=== PATIENT | male | born 2000 | race Caucasian/White ===

== ENCOUNTER 2019-07-26 09:37 | Emergency (ER) | payer OTHER ==
[~2019-07-26] VITALS: Ht 180.3 cm; Wt 96.8 kg
[2019-07-26] MEDS ORDERED: ACET-683 PO (09:44)
[2019-07-26] MEDS ORDERED: NON-325T5 PO (09:44)
[2019-07-26] MEDS ORDERED: ISOVUE-370 76% 100ML VIAL (Q9967) As Ordered ONE (10:35)
[2019-07-26 10:36] LABS: BASO % 0.3 % (0.0-1.0); EOS # 0.2 10^3/uL (0.0-0.5); EOS % 1.9 % (0.0-3.0); HEMOGLOBIN 15.4 g/dl (13.5-17.5); LYMPH # 1.2 10^3/uL (1.5-5.0); LYMPH % 15.5 % (24.0-44.0); MEAN CORPUSCULAR HEMOGLOBIN 29.7 pg (27.0-33.0); MEAN CORPUSCULAR HGB CONC 32.1 g/dl (32.0-36.5); MEAN CORPUSCULAR VOLUME 92.7 fl (80.0-96.0); MONO # 0.7 10^3/uL (0.0-0.8); MONO % 8.4 % (0.0-5.0); NEUTROPHILS # 5.7 10^3/uL (1.5-8.5); NEUTROPHILS % 73.6 % (36.0-66.0); PLATELET COUNT, AUTOMATED 236 10^3/uL (150-450); RED BLOOD COUNT 5.18 10^6/uL (4.30-6.10); WHITE BLOOD COUNT 7.8 10^3/uL (4.0-10.0)
[2019-07-26 11:10] LABS: ERYTHROCYTE SEDIMENTATION RATE 5 mm/hr (0-15)
--- NOTE | 2019-07-26 11:19 | REP ---
Soft-tissue neck CT study with IV contrast: History: Peritonsillar abscess. CT contrast dose: 75 mL of intravenous Isovue 370. CT findings: The left tonsillar soft tissues are enlarged. There is a ill-defined small area of low density 6 mm in diameter and the left tonsillar soft tissues. This does not have a well-defined enhancing margin and may reflect inflammatory change versus developing abscess. There is adjacent cervical lymphadenopathy most prominent in the left anterior cervical lymph nodes. These do not appear necrotic. The largest lymph node on the left measures 15 mm in short axis dimension x 21 x 29 mm. Peritonsillar soft tissues are unremarkable. Right tonsillar soft tissues are unremarkable. Submandibular and parotid glands are intact and symmetric. Thyroid lobes are normal in appearance. The lung apices are clear. No vascular lesion is seen. No bony destructive lesion is appreciated. Visualized paranasal sinuses are clear. The visualized intracranial structures are unremarkable. Impression: Enlarged left tonsillar soft tissues with ill-defined 6 mm area of low density inflammatory change. This does not appear to be a walled off abscess. There is reactive lymphadenopathy particularly on the left anteriorly. Electronically Signed by Smith Spicer MD 07/26/2019 04:49 P
[2019-07-26] MEDS ORDERED: methylPREDNISolone INJ 125 MG/2 ML VIAL (J2930) IV ONE (11:30)
[2019-07-26] MEDS ORDERED: CLEO300C2 PO (11:58)
[2019-07-26] MEDS ORDERED: PRED20TA PO (11:58)
[2019-07-26 12:05] VITALS: BP 131/72
== END 2019-07-26 12:06 | disposition home or self-care (01) ==
LOC: M ED 09:37
DX: J03.90 Acute tonsillitis, unspecified (principal); Z79.51 Long term (current) use of inhaled steroids; Z79.899 Other long term (current) drug therapy; Z87.891 Personal history of nicotine dependence
CPT/HCPCS: 70491; 80047; 83605; 85025; 85652; 86140; 87040; 96374; 99283; J2930; Q9967

== ENCOUNTER → 2020-02-21 | Outpatient (CLI) | payer OTHER ==
[~2020-02-21] MED LIST: ACET-683 PO; CLEO300C2 PO; NON-325T5 PO; PRED20TA PO
--- NOTE | 2020-02-26 14:30 | REP ---
SCROTAL ULTRASOUND HISTORY: Varicocele. TECHNIQUE: Real-time sonographic evaluation of the scrotum and contents is performed. FINDINGS: The testicles are normal in size and echotexture, right testicle measuring 5.3 x 2.0 x 3.6 cm and the left testicle 4.2 x 2.1 x 3.3 cm. Left testicle is smaller than the right. Few small cysts are seen in the head of the right epididymis, the largest measures 5 mm. There is a benign extratesticular calcification in the left hemiscrotum measuring 3 mm in diameter. There are dilated venous structures on the left measuring 5 mm, which increase to 6 mm diameter with Valsalva maneuver. There are small bilateral hydroceles. IMPRESSION: No testicular mass or torsion. Left testicle smaller than the right. Mild left varicocele. Few tiny cysts in the head of the right epididymis. Benign 3-mm calcification in the left hemiscrotum. MTDD
== END ==
LOC: M RAD 14:04
PROVIDERS: ATTEND Nurse Practitioner Women's Health
DX: N50.89 Other specified disorders of the male genital organs (principal)

== ENCOUNTER 2020-07-24 11:36 | Observation (INO) | payer OTHER ==
[~2020-07-24] VITALS: Ht 180.3 cm; Wt 94.8 kg
[~2020-07-24 11:36] MED LIST changes: +ACET-838 PO; -NON-325T5 PO
[2020-07-24] MEDS ORDERED: NS 2,810 ML in IV 1 EA IV ONE (12:15)
[2020-07-24 12:21] LABS: BASO % 0.2 % (0.0-1.0); HEMOGLOBIN 15.9 g/dl (13.5-17.5); LYMPH # 0.6 10^3/uL (1.5-5.0); LYMPH % 4.2 % (24.0-44.0); MEAN CORPUSCULAR HEMOGLOBIN 29.5 pg (27.0-33.0); MEAN CORPUSCULAR HGB CONC 33.1 g/dl (32.0-36.5); MEAN CORPUSCULAR VOLUME 89.1 fl (80.0-96.0); MONO # 1.2 10^3/uL (0.0-0.8); MONO % 8.9 % (2.0-8.0); NEUTROPHILS % 86.3 % (36.0-66.0); PLATELET COUNT, AUTOMATED 254 10^3/uL (150-450); RED BLOOD COUNT 5.39 10^6/uL (4.30-6.10); WHITE BLOOD COUNT 13.9 10^3/uL (4.0-10.0)
[2020-07-24] MEDS ORDERED: LORazepam 2 MG/ML VIAL IV STA (12:23)
[2020-07-24] MEDS ORDERED: MAG SULF 1GM/100ML (MAG RUN) 1 GM in IV 1 EA IV ONE ×2 (12:25→14:15)
--- NOTE | 2020-07-24 12:25 | REP ---
INDICATION: Drug Overdose COMPARISON: None. TECHNIQUE: Portable AP view of the chest FINDINGS: The mediastinum and cardiac silhouette are within normal limits for portable technique. The lung cardozo are clear without acute consolidation, effusion, or pneumothorax. Skeletal structures are intact. IMPRESSION: No acute cardiopulmonary process appreciated. <Electronically signed by Conor Mcgee > 07/24/20 [id number]
[2020-07-24 12:36] LABS: OSMOLALITY SERUM 295 MOSM/KG (275-295)
[2020-07-24 12:49] LABS: AMPHETAMINES LEVEL URINE NEGATIVE (NEGATIVE); BARBITURATES URINE NEGATIVE (NEGATIVE); BENZODIAZEPINES URINE NEGATIVE (NEGATIVE); CANNABINOIDS URINE NEGATIVE (NEGATIVE); COCAINE METABOLITE URINE NEGATIVE (NEGATIVE); METHADONE URINE NEGATIVE (NEGATIVE); OPIATES URINE NEGATIVE (NEGATIVE); PHENCYCLIDINE URINE NEGATIVE (NEGATIVE)
[2020-07-24 13:01] LABS: ACETAMINOPHEN LEVEL < 2.0 UG/ML (10.0-30.0); ALBUMIN 5.2 GM/DL (3.2-5.2); ALT/SGPT 36 U/L (12-78); BILIRUBIN,DIRECT 0.2 MG/DL (0.0-0.2); BILIRUBIN,TOTAL 0.5 MG/DL (0.2-1.0); BLOOD UREA NITROGEN 16 MG/DL (7-18); CALCIUM LEVEL 10.2 MG/DL (8.5-10.1); CARBON DIOXIDE LEVEL 24 MEQ/L (21-32); CHLORIDE LEVEL 107 MEQ/L (98-107); CPK CREATINE PHOSPHOKINASE 9382 U/L (39-308); ETHYL ALCOHOL (ETHANOL) < 0.003 % (0.000-0.010); GLOMERULAR FILTRATION RATE 47.9 (>60); GLUCOSE, FASTING 105 MG/DL (70-100); POTASSIUM SERUM 3.7 MEQ/L (3.5-5.1); SALICYLATE LEVEL < 1.7 MG/DL (5.0-30.0); SODIUM LEVEL 142 MEQ/L (136-145); TOTAL PROTEIN 8.2 GM/DL (6.4-8.2)
[2020-07-24] MEDS ORDERED: HEPARIN SOD (PORCINE) 5000UNITS/ML 1ML VIAL/SYRINGE SC SCH (15:00)
--- NOTE | 2020-07-24 16:18 | HPEPDOC ---
[facility] Medical History & Physical Date of Admission Jul 24, 2020 Date of Service: Jul 24, 2020 Attending Physician: Nicole Salazar MD History and Physical CHIEF COMPLAINT: Altered mental status HISTORY OF PRESENT ILLNESS: Patient is a 20-year-old male with no significant past medical history who presented to [facility] emergency room by EMS after being found altered on . According to ER provider, the patient was seen wandering outside of his room half dressed. He was confused, had garbled speech and thought he was in [place]. It was later found out that the patient took approximately 2500 mg of Benadryl with alcohol and attempt to kill himself after his girlfriend broke up with him. The patient has no documented history of depression or suicidal attempts. He does not follow with [facility] on . The patient was brought to the emergency room for further evaluation. In the ER, vital signs show temperature 95.996.5 Fahrenheit, heart rate [id number] with all other vital signs stable. WBC 13.9, creatinine 1.90 (baseline is within normal limits), CK 9382, QTC 570 on initial ECG. Repeat ECG showed QTC 450 and improved. Chest x-ray showed no acute cardiopulmonary process. The patient had no injury on his body. Over some time the patient's and patient improved and he again admitted to want to kill himself after the news of his girlfriend breaking up with him. He states he has felt sad even from before that but has never thought about killing himself. He states those thoughts are still with him. He denies auditory or visual hallucinations, hopelessness, tearfulness, loss of appetite, poor sleep, poor concentration outside of this event. He does admit to feeling paranoid at times, more than normal. Poison control was called from the emergency room. Patient was aggressively hydrated; however, tachycardia persisted. The patient denied chest pain, shortness of breath, nausea, vomiting, fevers, chills and does not recall any type of tremoring, there was no witnessed seizure-like activity. The patient was admitted for diphenhydramine overdose, acute kidney failure, acute rhabdomyolysis, suicide attempt. REVIEW OF SYSTEMS: Negative except for what is mentioned above PAST MEDICAL HISTORY: None PAST SURGICAL HISTORY: [place] teeth removal FAMILY HISTORY: Father: Unknown medical history as he is not actively in his life Mother: Diabetes, asthma. Alive SOCIAL HISTORY: The patient sleeps several times per week. He denies drug use. He drinks alcohol 23 times per week. He lives on [address] in the [facility]. He is a full code. ALLERGIES: Please see below. HOME MEDICATIONS: Please see below. PHYSICAL EXAMINATION: VS: Please see below CONSTITUTIONAL: No acute distress, resting comfortably, AAO x 3 EYES: PERRLA but dilated to 8 mm, EOM intact, + horizontal nystagmus HENT, MOUTH: Normocephalic, atraumatic, moist mucous membranes, NECK: SUPPLE, no JVD, no lymphadenopathy, no carotid bruit CV: Regular rate and rhythm, S1S2 normal, no murmurs/rubs/gallops RESPIRATORY: Clear to auscultation bilaterally, no rales/rhonchi/wheezes GI: BS positive in 4 quadrants, soft, nontender, nondistended, no rebound or guarding, no organomegaly : Deferred MUSCULOSKELETAL: Normal ROM. No cyanosis, clubbing, swelling, joint deformity, extremity edema INTEGUMENTARY: Intact, no rashes, no lesions, no erythema NEUROLOGIC: Cranial Nerves II-XII are intact, no focal deficits PSYCHIATRIC: Flat affect LABORATORY DATA: Please see below IMAGING: CXR: No acute cardiopulmonary issues ASSESSMENT: 20-year-old male with no significant past medical history admitted for suicide attempt 2/2 to alcohol with diphenhydramine overdose, acute kidney failure, acute rhabdomyolysis, suicide attempt. PLAN: Acute encephalopathy likely toxic and 2/2 to diphenhydramine overdose with alcohol -Improving slowly with IVFs -UDS neg -ETOH neg -Poison control contacted -C/w aggressive IVF hydration Acute kidney failure likely multifactorial 2/2 to dehydration, acute rhabdomyolysis -Cr 1.9, baseline is wnl -C/w aggressive fluid hydration, avoid nephrotoxic meds, tx for acute rhabdomyolysis below Acute rhabdomyolysis likely 2/2 to being down for unknown period of time, cannot r/o seizure during this time -Cr 1.9, CK 9382 -C/w fluid hydration, encouraging fluids during the day, daily labs including CK Tachycardia likely 2/2 to dehydration, anxiety, overdose above -C/w IVFs -Monitor on tele -Not suspecting infection Suicide attempt with likely underlying undiagnosed depression -States he has felt "sad" for some time now -No prior suicide attempts, hospital or psych hospital admissions -1:1 sitter, when more medically stable will involve psychiatry to evaluate. Prolonged QTc -Improved since initial ECG -Monitor on tele DVT px -Heparin SC DISPOSITION: Plan is to consult psychiatry when medical issues have improved. W ill likely need inpatient services in [facility]. Vital Signs Vital Signs Date Time Temp Pulse Resp B/P (MAP) Pulse Ox O2 Delivery O2 Flow Rate FiO2 07/24/20 14:56 95.9 07/24/20 14:53 119 22 98 Room Air 07/24/20 14:45 143/63 (89) Laboratory Data Labs 24H Laboratory Tests 2 07/24/20 12:01: Immature Granulocyte % (Auto) 0.4, Neutrophils (%) (Auto) 86.3H, Lymphocytes (%) (Auto) 4.2L, Monocytes (%) (Auto) 8.9H, Eosinophils (%) (Auto) 0.0, Basophils (%) (Auto) 0.2, Neutrophils # (Auto) 12.0H, Lymphocytes # (Auto) 0.6L, Monocytes # (Auto) 1.2H, Eosinophils # (Auto) 0.0, Basophils # (Auto) 0.0, Nucleated Red Blood Cells % (auto) 0.0, Anion Gap 11, Glomerular Filtration Rate 47.9L, Osmolality 295, Calcium Level 10.2H, Total Bilirubin 0.5, Direct Bilirubin 0.2, Aspartate Amino Transf (AST/SGOT) 132H, Alanine Aminotransferase (ALT/SGPT) 36, Alkaline Phosphatase 87, Total Creatine Kinase 9382H, Total Protein 8.2, Albumin 5.2, Albumin/Globulin Ratio 1.7, Thyroid Stimulating Hormone (TSH) 1.450, Salicylates Level < 1.7L, Acetaminophen Level < 2.0L, Ethyl Alcohol Level < 0.003 07/24/20 12:15: Urine Opiates Screen NEGATIVE, Urine Methadone Screen NEGATIVE, Urine Barbiturates Screen NEGATIVE, Urine Phencyclidine Screen NEGATIVE, Urine Amphetamines Screen NEGATIVE, Urine Benzodiazepines Screen NEGATIVE, Urine Cocaine Metabolite Screen NEGATIVE, Urine Cannabinoids Screen NEGATIVE 07/24/20 15:50: CBC/BMP Laboratory Tests 07/24/20 12:01 Home Medications Unable to Obtain Active Prescriptions or Reported Meds Allergies Coded Allergies: No Known Drug Allergies (Verified Allergy, Unknown, 07/26/19) A-FIB/CHADSVASC A-FIB History Current/History of A-Fib/PAF?: No Current PO Anticoag Therapy: No Age/Risk Factor Scoring CHADSVASC: CHADSVASC Response (Comments) Value Age Risk Factor Age < 65 years old 0 Gender Risk Factor Male 0 Hx of CHF No 0 Hx of HTN No 0 Hx of Stroke/TIA/or VTE No 0 Hx of Diabetes No 0 Hx of Vascular Disease No 0 Total 0 Treatment Treatment ordered: Other Other anticoagulant ordered: heparin Nicole Salazar MD Jul 24, 2020 16:18
[2020-07-24] MEDS: NS 1,000 ML IV SCH ×2 (16:35→23:56)
[2020-07-24 16:40] LABS: RSV AMPLIFICATION NEGATIVE (NEGATIVE)
[2020-07-24 18:15] VITALS: BP 134/78
[2020-07-24 19:25] VITALS: BP 126/75
[2020-07-24] MEDS: HEPARIN SOD (PORCINE) 5000UNITS/ML 1ML VIAL/SYRINGE SC SCH (21:37)
[2020-07-24 23:25] LABS: ALBUMIN 3.7 GM/DL (3.2-5.2); ALT/SGPT 51 U/L (12-78); BILIRUBIN,TOTAL 0.7 MG/DL (0.2-1.0); BLOOD UREA NITROGEN 12 MG/DL (7-18); CALCIUM LEVEL 8.1 MG/DL (8.5-10.1); CARBON DIOXIDE LEVEL 27 MEQ/L (21-32); CHLORIDE LEVEL 111 MEQ/L (98-107); CPK CREATINE PHOSPHOKINASE 41552 U/L (39-308); CREATININE FOR GFR 0.97 MG/DL (0.70-1.30); GLOMERULAR FILTRATION RATE > 60.0 (>60); GLUCOSE, FASTING 99 MG/DL (70-100); MAGNESIUM LEVEL 2.2 MG/DL (1.8-2.4); POTASSIUM SERUM 3.7 MEQ/L (3.5-5.1); SODIUM LEVEL 142 MEQ/L (136-145); TOTAL PROTEIN 6.1 GM/DL (6.4-8.2)
--- NOTE | 2020-07-25 03:20 | ECGEPIP ---
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
--- NOTE | 2020-07-25 03:25 | ECGEPIP ---
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
[2020-07-25] MEDS: NS 1,000 ML IV SCH ×4 (04:53→23:31)
[2020-07-25] MEDS: HEPARIN SOD (PORCINE) 5000UNITS/ML 1ML VIAL/SYRINGE SC SCH ×3 (05:03→21:16)
[2020-07-25 05:57] LABS: HEMATOCRIT 41.5 % (42.0-52.0); MEAN CORPUSCULAR HGB CONC 32.3 g/dl (32.0-36.5); PLATELET COUNT, AUTOMATED 187 10^3/uL (150-450); RED BLOOD COUNT 4.46 10^6/uL (4.30-6.10); WHITE BLOOD COUNT 6.2 10^3/uL (4.0-10.0)
[2020-07-25 06:00] VITALS: BP 125/76
[2020-07-25 06:02] LABS: HEMOGLOBIN 13.4 g/dl (13.5-17.5)
[2020-07-25 07:13] LABS: ALBUMIN 3.6 GM/DL (3.2-5.2); ALT/SGPT 57 U/L (12-78); BILIRUBIN,TOTAL 0.8 MG/DL (0.2-1.0); BLOOD UREA NITROGEN 10 MG/DL (7-18); CALCIUM LEVEL 7.8 MG/DL (8.5-10.1); CARBON DIOXIDE LEVEL 26 MEQ/L (21-32); CHLORIDE LEVEL 111 MEQ/L (98-107); CPK CREATINE PHOSPHOKINASE 36064 U/L (39-308); CREATININE FOR GFR 0.88 MG/DL (0.70-1.30); GLOMERULAR FILTRATION RATE > 60.0 (>60); GLUCOSE, FASTING 88 MG/DL (70-100); SODIUM LEVEL 142 MEQ/L (136-145)
[2020-07-25 14:00] VITALS: BP 131/65
--- NOTE | 2020-07-25 17:17 | IPNPDOC ---
Date Seen The patient was seen on 07/25/20. Progress Note SUBJECTIVE: Complains of sore throat, gf had recent infection unknown cause. Throat culture ordered. CK elevated, c/w hydration. Denies chest pain but is overall weak. OBJECTIVE: PHYSICAL EXAMINATION: VS: Please see below CONSTITUTIONAL: No acute distress, resting comfortably, AAO x 3 EYES: PERRLA but dilated to 8 mm, EOM intact, + horizontal nystagmus HENT, MOUTH: Normocephalic, atraumatic, moist mucous membranes, NECK: SUPPLE, no JVD, no lymphadenopathy, no carotid bruit CV: Regular rate and rhythm, S1S2 normal, no murmurs/rubs/gallops RESPIRATORY: Clear to auscultation bilaterally, no rales/rhonchi/wheezes GI: BS positive in 4 quadrants, soft, nontender, nondistended, no rebound or guarding, no organomegaly : Deferred MUSCULOSKELETAL: Normal ROM. No cyanosis, clubbing, swelling, joint deformity, extremity edema INTEGUMENTARY: Intact, no rashes, no lesions, no erythema NEUROLOGIC: Cranial Nerves II-XII are intact, no focal deficits PSYCHIATRIC: Flat affect LABORATORY DATA: Please see below IMAGING: CXR: No acute cardiopulmonary issues ASSESSMENT: 20-year-old male with no significant past medical history admitted for suicide attempt 2/2 to alcohol with diphenhydramine overdose, acute kidney failure, acute rhabdomyolysis, suicide attempt. PLAN: Acute encephalopathy likely toxic and 2/2 to diphenhydramine overdose with alcohol-improved. -UDS neg -ETOH neg -Poison control contacted -C/w aggressive IVF hydration Acute kidney failure likely multifactorial 2/2 to dehydration, acute rhabdomyolysis -Cr 1.9--> wnl today, baseline is wnl -C/w aggressive fluid hydration due to incr CK levels, avoid nephrotoxic meds, tx for acute rhabdomyolysis below Acute rhabdomyolysis likely 2/2 to being down for unknown period of time, cannot r/o seizure during this time -Cr wnl; however, CK peaked at 41K, came down slightly to 36K. -Fu levels in the AM -C/w fluid hydration, encouraging fluids during the day, daily labs including CK Tachycardia likely 2/2 to dehydration, anxiety, overdose above -C/w IVFs -Monitor on tele -Cannot r/o throat infection as cause also Suicide attempt with likely underlying undiagnosed depression -States he has felt "sad" for some time now -No prior suicide attempts, hospital or psych hospital admissions -1:1 sitter, when more medically stable will involve psychiatry to evaluate- likely on 07/26/20 . Sore throat -Recent partner + throat infection, type unknown -F/u culture Prolonged QTc- resolved -Improved since initial ECG -Monitor on tele DVT px -Heparin SC DISPOSITION: Plan is to consult psychiatry when medical issues have improved, likely 07/26/20 . [facility] need [facility] VS, I&O, 24H, Fishbone Vital Signs/I&O Vital Signs Date Time Temp Pulse Resp B/P (MAP) Pulse Ox O2 Delivery O2 Flow Rate FiO2 07/25/20 14:00 97.9 101 20 131/65 (87) 98 Room Air I&O- Last 24 Hours up to 6 AM 07/25/20 05:59 Intake Total 4428 ml Output Total 1175 ml Balance 3253 ml Laboratory Data 24H LABS Laboratory Tests 2 07/24/20 21:59: Anion Gap 4L, Glomerular Filtration Rate > 60.0, Calcium Level 8.1#L, Magnesium Level 2.2, Total Bilirubin 0.7, Aspartate Amino Transf (AST/SGOT) 415H, Alanine Aminotransferase (ALT/SGPT) 51, Alkaline Phosphatase 65, Total Creatine Kinase 30140#H, Total Protein 6.1#L, Albumin 3.7#, Albumin/Globulin Ratio 1.5 07/25/20 05:40: Anion Gap 5L, Glomerular Filtration Rate > 60.0, Calcium Level 7.8L, Total Bilirubin 0.8, Aspartate Amino Transf (AST/SGOT) 430H, Alanine Aminotransferase (ALT/SGPT) 57, Alkaline Phosphatase 64, Total Creatine Kinase 17603C, Total Protein 6.0L, Albumin 3.6, Albumin/Globulin Ratio 1.5, Nucleated Red Blood Cells % (auto) 0.0 CBC/BMP Laboratory Tests 07/24/20 21:59 07/25/20 05:40 Microbiology Microbiology 07/25/20 Eye/Ear/Nose/Throat Culture, Received Pending Current Medications Current Medications Medications (Trade) Dose Ordered Sig/Jade Route PRN Reason Start Time Stop Time Status Last Admin Dose Admin Heparin Sodium (Porcine) (Heparin) 5,000 units Q8H SC 07/24/20 15:00 Cancel Heparin Sodium (Porcine) (Heparin) 5,000 units Q8H SC 07/24/20 22:00 07/25/20 14:58 Home Med (Med Rec Complete!) ASDIRECTED XX 07/24/20 15:50 07/24/20 15:50 DC Lorazepam (Ativan) 1 mg STAT STAT IV 07/24/20 12:23 07/24/20 12:24 DC 07/24/20 12:30 Sodium Chloride 1,000 ml @ 150 mls/hr Q6H40M IV 07/24/20 15:25 07/25/20 14:58 Allergies Coded Allergies: No Known Drug Allergies (Verified Allergy, Unknown, 07/26/19) Nicole Salazar MD Jul 25, 2020 17:17
[2020-07-25 22:00] VITALS: BP 127/75
[2020-07-26] MEDS: HEPARIN SOD (PORCINE) 5000UNITS/ML 1ML VIAL/SYRINGE SC SCH ×2 (05:33→14:07)
[2020-07-26] MEDS: NS 1,000 ML IV SCH ×2 (05:33→10:45)
[2020-07-26 06:00] VITALS: BP 132/75
[2020-07-26 06:20] LABS: HEMATOCRIT 40.5 % (42.0-52.0); HEMOGLOBIN 13.3 g/dl (13.5-17.5); MEAN CORPUSCULAR HEMOGLOBIN 29.6 pg (27.0-33.0); MEAN CORPUSCULAR HGB CONC 32.8 g/dl (32.0-36.5); MEAN CORPUSCULAR VOLUME 90.2 fl (80.0-96.0); PLATELET COUNT, AUTOMATED 186 10^3/uL (150-450); RED BLOOD COUNT 4.49 10^6/uL (4.30-6.10); WHITE BLOOD COUNT 5.2 10^3/uL (4.0-10.0)
[2020-07-26 09:04] LABS: ALBUMIN 3.7 GM/DL (3.2-5.2); ALT/SGPT 66 U/L (12-78); BILIRUBIN,TOTAL 0.4 MG/DL (0.2-1.0); BLOOD UREA NITROGEN 7 MG/DL (7-18); CALCIUM LEVEL 8.4 MG/DL (8.5-10.1); CARBON DIOXIDE LEVEL 29 MEQ/L (21-32); CHLORIDE LEVEL 109 MEQ/L (98-107); CPK CREATINE PHOSPHOKINASE 34115 U/L (39-308); CREATININE FOR GFR 0.76 MG/DL (0.70-1.30); GLOMERULAR FILTRATION RATE > 60.0 (>60); GLUCOSE, FASTING 94 MG/DL (70-100); POTASSIUM SERUM 3.4 MEQ/L (3.5-5.1); SODIUM LEVEL 142 MEQ/L (136-145); TOTAL PROTEIN 6.6 GM/DL (6.4-8.2)
[2020-07-26] MEDS ORDERED: POTASSIUM CHLORIDE 10 MEQ SR TABLET PO ONE (11:20)
[2020-07-26 14:00] VITALS: BP 123/70
--- NOTE | 2020-07-26 15:21 | DS.PDOC ---
Discharge Summary General Date of Admission Jul 24, 2020 at 11:37 Date of Discharge 07/26/20 Attending Physician: Nicole Salazar MD Discharge Summary HISTORY OF PRESENT ILLNESS: Patient is a 20-year-old male with no significant past medical history who presented to [facility] emergency room by EMS after being found altered on . According to ER provider, the patient was seen wandering outside of his room half dressed. He was confused, had garbled speech and thought he was in [place]. It was later found out that the patient took approximately 2500 mg of Benadryl with alcohol and attempt to kill himself after his girlfriend broke up with him. The patient has no documented history of depression or suicidal attempts. He does not follow with [facility] on . The patient was brought to the emergency room for further evaluation. In the ER, vital signs show temperature 95.996.5 Fahrenheit, heart rate [id number] with all other vital signs stable. WBC 13.9, creatinine 1.90 (baseline is within normal limits), CK 9382, QTC 570 on initial ECG. Repeat ECG showed QTC 450 and improved. Chest x-ray showed no acute cardiopulmonary process. The patient had no injury on his body. Over some time the patient's and patient improved and he again admitted to want to kill himself after the news of his girlfriend breaking up with him. He states he has felt sad even from before that but has never thought about killing himself. He states those thoughts are still with him. He denies auditory or visual hallucinations, hopelessness, tearfulness, loss of appetite, poor sleep, poor concentration outside of this event. He does admit to feeling paranoid at times, more than normal. Poison control was called from the emergency room. Patient was aggressively hydrated; however, tachycardia persisted. The patient denied chest pain, shortness of breath, nausea, vomiting, fevers, chills and does not recall any type of tremoring, there was no witnessed seizure-like activity. The patient was admitted for diphenhydramine overdose, acute kidney failure, acute rhabdomyolysis, suicide attempt. HOSPITAL COURSE: With continued fluids, rest patient's acute encephalopathy likely toxic and 2/2 to diphenhydramine overdose with alcohol resolved. UDS neg, ETOH neg. Cr no rmalized after 24 hours of aggressive IVFs. CK peaked at 41K, currently in 30K's; however, due to good PO intake and declining levels, patient is stabilizing nicely. Acute kidney failure likely multifactorial 2/2 to dehydration, acute rhabdomyolysis. C/w encouraging 1-2 L fluids daily as CK levels continue to improve, avoid nephrotoxic meds, tx for acute rhabdomyolysis below. Tachycardia is likely 2/2 to dehydration, anxiety, overdose. This is also nicely with hydration. Patient's case was discussed with psychiatry (Dr. Braxton) this AM who has evaluated and accepted to inpatient mental health today. To be discharged today and we will follow closely while there. He denies chest pain, shortness of breath, fevers, chills, suicidal ideations currently. PAST MEDICAL HISTORY: None PAST SURGICAL HISTORY: [place] teeth removal FAMILY HISTORY: Father: Unknown medical history as he is not actively in his life Mother: Diabetes, asthma. Alive SOCIAL HISTORY: The patient vapes several times per week. He denies drug use. He drinks alcohol 23 times per week. He lives on [address] in the [facility]. He is a full code. PHYSICAL EXAMINATION: VS: Please see below CONSTITUTIONAL: No acute distress, resting comfortably, AAO x 3 EYES: PERRLA, EOM intact HENT, MOUTH: Normocephalic, atraumatic, moist mucous membranes NECK: SUPPLE, no JVD, no lymphadenopathy, no carotid bruit CV: Regular rate and rhythm, S1S2 normal, no murmurs/rubs/gallops RESPIRATORY: Clear to auscultation bilaterally, no rales/rhonchi/wheezes GI: BS positive in 4 quadrants, soft, nontender, nondistended, no rebound or guarding, no organomegaly : Deferred MUSCULOSKELETAL: Normal ROM. No cyanosis, clubbing, swelling, joint deformity, extremity edema INTEGUMENTARY: Intact, no rashes, no lesions, no erythema NEUROLOGIC: Cranial Nerves II-XII are intact, no focal deficits PSYCHIATRIC: mood and affect appropriate LABORATORY DATA: Please see below IMAGING: CXR: No acute cardiopulmonary issues ASSESSMENT: 20-year-old male with no significant past medical history admitted for suicide attempt 2/2 to alcohol with diphenhydramine overdose, acute kidney failure, acute rhabdomyolysis, suicide attempt. PLAN: Acute encephalopathy likely toxic and 2/2 to diphenhydramine overdose with alcohol- resolved -UDS neg -ETOH neg Acute kidney failure likely multifactorial 2/2 to dehydration, acute rhabdomyoly sis -Cr 1.9--> now wnl -C/w encouraging 1-2 L fluids daily as CK levels continue to improve, avoid nephrotoxic meds, tx for acute rhabdomyolysis below Acute rhabdomyolysis likely 2/2 to being down for unknown period of time, cannot r/o seizure during this time -Cr wnl; however, CK peaked at 41K, coming down slowly -F/u repeat levels in [facility] on first day -C/w fluid hydration, encouraging fluids during the day Tachycardia likely 2/2 to dehydration, anxiety, overdose above-improving -C/w hydration Suicide attempt with likely underlying undiagnosed depression -States he has felt "sad" for some time now -No prior suicide attempts, hospital or psych hospital admissions -1:1 sitter -Discharging to [facility] for further treatment. Discussed case with Dr. Braxton today Prolonged QTc- resolved -Improved since initial ECG -Monitor on tele DISPOSITION: D/c to [facility] today, accepting provider Dr. Braxton TIME SPENT ON DISCHARGE: 35 minutes. Vital Signs/I&Os Vital Signs Date Time Temp Pulse Resp B/P (MAP) Pulse Ox O2 Delivery O2 Flow Rate FiO2 07/26/20 06:00 97.9 88 19 132/75 (94) 98 Room Air I&O- Last 24 Hours up to 6 AM 07/26/20 05:59 Intake Total 6900 ml Output Total 3450 ml Balance 3450 ml Laboratory Data Labs 24H Laboratory Tests 2 07/26/20 05:52: Nucleated Red Blood Cells % (auto) 0.0, Anion Gap 4L, Glomerular Filtration Rate > 60.0, Calcium Level 8.4L, Total Bilirubin 0.4, Aspartate Amino Transf (AST/SGOT) 397H, Alanine Aminotransferase (ALT/SGPT) 66, Alkaline Phosphatase 65, Total Creatine Kinase 11842L, Total Protein 6.6, Albumin 3.7, Albumin/Globulin Ratio 1.3 CBC/BMP Laboratory Tests 07/26/20 05:52 Microbiology Microbiology 07/25/20 Eye/Ear/Nose/Throat Culture - Final, Complete Discharge Medications Unable to Obtain Active Prescriptions or Reported Meds Allergies Coded Allergies: No Known Drug Allergies (Verified Allergy, Unknown, 07/26/19) Nicole Salazar MD Jul 26, 2020 15:21
--- NOTE | 2020-07-26 16:08 | MHCRPDOC ---
[facility] Consultation Consultation DATE OF CONSULTATION: 07/26/20 CONSULTATION REQUESTED BY: Dr. Nishant Salazar REASON FOR CONSULTATION: Depression and need for admission. 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 His surgical history is negative. His legal history is negative. His neurological history is negative. He has a high school diploma. His psychiatric history is negative. His psychiatric medications. History is negative. He states, however, in middle school, he sought some counseling due to attention problems. No history is negative. He has no children. He states, "I became nihilistic and overdosed on 100 Benadryl 25 mg and a half a bottle of whiskey. Patient states he wanted to . He felt stress. He had broken up with a girlfriend who he had met on the dictating Name, and they have been seeing each other for 4 months. She stated she couldn't see him anymore. His last communication was hurt with her was 3 days ago. He did not feel her being symp athetic or empathetic. He would like to try the brown denominational. He denies hallucinations, delusions, obsessions, compulsions and feels he is a burden to everybody. He is tearful and feels he is the work course of just keeps working from the [employer]. He sleeps well. His appetite is not as good. PAST PSYCHIATRIC HISTORY:. No psychiatric history PAST MEDICAL HISTORY: No medical history FAMILY HISTORY: Mother: Noncontributory Father:. Noncontributory Siblings:. Noncontributory Children:. Noncontributory PERSONAL AND SOCIAL HISTORY: The patient was born and raised in [place].. The patient was from [place]. 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 MENTAL STATUS EXAMINATION: Patient is a 20-year old male, who is, extremely tearful and suicidal following a breakup. Speech is. Normal. Language skills are no gross disturbance. Thought processes including: Sadness. Thought content: Sadness over girlfriend. Abstract reasoning, and computation:, Intact. Description of associations:. No loose association. Description of abnormal or psychotic thoughts:. No abnormal or psychotic.. Judgment: Intact. Insight: Intact Orientation to 3. Recent and remote memory: Intact. Attention span and concentration: Intact. Language:. No disturbance. Fund of knowledge: Reasonable. Mood: Sad. Affect:, Tearful. DIAGNOSIS: 1., Situational depression. PLAN: 1., Transferred to unit and observe. 2. None. Vital Signs Vital Signs Date Time Temp Pulse Resp B/P (MAP) Pulse Ox O2 Delivery O2 Flow Rate FiO2 07/26/20 06:00 97.9 88 19 132/75 (94) 98 Room Air Laboratory Data 24H Labs Laboratory Tests 2 07/26/20 05:52: Nucleated Red Blood Cells % (auto) 0.0, Anion Gap 4L, Glomerular Filtration Rate > 60.0, Calcium Level 8.4L, Total Bilirubin 0.4, Aspartate Amino Transf (AST/SGOT) 397H, Alanine Aminotransferase (ALT/SGPT) 66, Alkaline Phosphatase 65, Total Creatine Kinase 85246J, Total Protein 6.6, Albumin 3.7, Albumin/Gina bulin Ratio 1.3 Home Medications Current Medications Current Medications Medications (Trade) Dose Ordered Sig/Jade Route PRN Reason Start Time Stop Time Status Last Admin Dose Admin Heparin Sodium (Porcine) (Heparin) 5,000 units Q8H SC 07/24/20 15:00 Cancel Heparin Sodium (Porcine) (Heparin) 5,000 units Q8H SC 07/24/20 22:00 07/26/20 14:07 Home Med (Med Rec Complete!) ASDIRECTED XX 07/24/20 15:50 07/24/20 15:50 DC Lorazepam (Ativan) 1 mg STAT STAT IV 07/24/20 12:23 07/24/20 12:24 DC 07/24/20 12:30 Sodium Chloride 1,000 ml @ 125 mls/hr Q8H IV 07/24/20 15:25 07/26/20 10:45 Unable to Obtain Active Prescriptions or Reported Meds Allergies Coded Allergies: No Known Drug Allergies (Verified Allergy, Unknown, 07/26/19) KEYLA VALDES MD Jul 26, 2020 16:08
[2020-07-26] MEDS ORDERED: traZODone 50 MG TAB PO PRN (17:55)
[2020-07-26] MEDS ORDERED: ACETAMINOPHEN TAB 650MG DOSE (2X325MG) PO PRN (17:55)
[2020-07-26] MEDS ORDERED: MOM 30ML SUSPENSION UDC PO PRN (17:55)
[2020-07-26] MEDS ORDERED: MAALOX 30 ML SUSP *UDC PO PRN (17:55)
== END 2020-07-26 21:53 ==
LOC: EDBD 11:36 → M ED 11:36 → M ED INP 11:37 → ENRESERV 17:16 → M MSPAV 18:15
PROVIDERS: ADMIT Internal Medicine; ATTEND Internal Medicine
DX: T45.0X2A Poisoning by antiallergic and antiemetic drugs, intentional self-harm, initial encounter (principal); T14.91XA Suicide attempt, initial encounter; N17.9 Acute kidney failure, unspecified; G92 Toxic encephalopathy; E86.0 Dehydration; R00.0 Tachycardia, unspecified; Y92.89 Other specified places as the place of occurrence of the external cause
CPT/HCPCS: 36415; 71045; 80048; 80053; 80076; 80143; 80307; 82077; 82550; 83735; 83930; 84443; 85025; 85027; 87070; 87631; 93005; 93041; 94760; 96361; 96372; 96374; 97161; 97165; 97535; 99285; J1644; J2060; J3475

== ENCOUNTER 2020-07-26 18:21 | Inpatient (IN) | payer OTHER ==
[~2020-07-26] VITALS: Ht 180.3 cm; Wt 92.0 kg
[2020-07-26] MEDS ORDERED: ACETAMINOPHEN TAB 650MG DOSE (2X325MG) PO PRN (19:55)
[2020-07-26] MEDS ORDERED: traZODone 50 MG TAB PO PRN (19:55)
[2020-07-26] MEDS ORDERED: MAALOX 30 ML SUSP *UDC PO PRN (19:55)
[2020-07-26] MEDS ORDERED: MOM 30ML SUSPENSION UDC PO PRN (19:55)
[2020-07-26 22:18] VITALS: BP 143/90
[2020-07-27 07:30] VITALS: BP 122/70
[2020-07-27] MEDS: SERTRALINE HCL 50 MG TAB PO SCH (09:00)
--- NOTE | 2020-07-27 09:10 | HPEPDOC ---
[facility] Medical History & Physical Date of Admission Jul 26, 2020 Date of Service: Jul 27, 2020 Attending Physician: Nicole Salazar MD History and Physical HISTORY OF PRESENT ILLNESS: Patient is a 20-year-old male with no significant past medical history who initially presented to [facility] emergency room by EMS on 07/24/20 after being found altered on [address]. He was admitted for toxic encephalopathy from s uicidal attempt with diphenhydramine and alcohol , acute kidney failure, acute rhabdomyolysis. During his hospital course, he was kept on fluids, and patient's acute encephalopathy likely toxic and 2/2 to diphenhydramine overdose with alcohol resolved. UDS neg, ETOH neg. Cr normalized after 24 hours of aggressive IVFs. CK peaked at 41K, but decreased to 34K. Acute kidney failure was found to be likely multifactorial 2/2 to dehydration, acute rhabdomyolysis. He was discharged in improved condition to [facility] on 07/26/20 to continue treatment for depression, suicide attempt. We saw him again today for medicine f/u. Repeat CK decreased to 10K from 34K, AST decreased as well to slightly over 200. He has no acute complaints. He denies chest pain, shortness of breath, fevers, chills, suicidal ideations currently. PAST MEDICAL HISTORY: Depression Suicide attempt PAST SURGICAL HISTORY: [place] teeth removal FAMILY HISTORY: Father: Unknown medical history as he is not actively in his life Mother: Diabetes, asthma. Alive SOCIAL HISTORY: The patient vapes several times per week. He denies drug use. He drinks alcohol 23 times per week. He lives on [address] in the [facility]. He is a full code. PHYSICAL EXAMINATION: VS: Please see below CONSTITUTIONAL: No acute distress, resting comfortably, AAO x 3 EYES: PERRLA, EOM intact HENT, MOUTH: Normocephalic, atraumatic, moist mucous membranes NECK: SUPPLE, no JVD, no lymphadenopathy, no carotid bruit CV: Regular rate and rhythm, S1S2 normal, no murmurs/rubs/gallops RESPIRATORY: Clear to auscultation bilaterally, no rales/rhonchi/wheezes GI: BS positive in 4 quadrants, soft, nontender, nondistended, no rebound or guarding, no organomegaly : Deferred MUSCULOSKELETAL: Normal ROM. No cyanosis, clubbing, swelling, joint deformity, extremity edema INTEGUMENTARY: Intact, no rashes, no lesions, no erythema NEUROLOGIC: Cranial Nerves II-XII are intact, no focal deficits PSYCHIATRIC: mood and affect appropriate LABORATORY DATA: Please see below IMAGING: None ASSESSMENT: 20-year-old male admitted to [facility] for depressive disorder, suicide attempt. Medicine consulted to follow. PLAN: Depression, suicide attempt -Plan per psychiatry Acute rhabdomyolysis likely 2/2 to being down for unknown period of time, cannot r/o seizure -Cr wnl. CK peaked at 41K--> 10K today -Recommending hydration of at least 1-2 L fluid daily while IM, no need to continue to trend CK's, labs as they all seem to be improving. Transaminitis likely 2/2 to acute dehydration -Improving slowly -AST slightly over 200 -Hydration as discussed above, avoid tylenol or other meds that clear hepatically for now. -Can f/u with PCP to recheck levels in 1-2 weeks. DISPOSITION: Thank you kindly for this consult. At that time will sign off case, as patient's medical issues appear improving. If we are needed at another time please do no hesitate to call us to reassess again. Vital Signs Vital Signs Date Time Temp Pulse Resp B/P (MAP) Pulse Ox O2 Delivery O2 Flow Rate FiO2 07/27/20 07:30 97.7 64 20 122/70 (87) 97 Room Air Home Medications No Active Prescriptions or Reported Meds Allergies Coded Allergies: No Known Drug Allergies (Verified Allergy, Unknown, 07/26/19) A-FIB/CHADSVASC A-FIB History Current/History of A-Fib/PAF?: No Current PO Anticoag Therapy: No Age/Risk Factor Scoring CHADSVASC: CHADSVASC Response (Comments) Value Age Risk Factor Age < 65 years old 0 Gender Risk Factor Male 0 Hx of CHF No 0 Hx of HTN No 0 Hx of Stroke/TIA/or VTE No 0 Hx of Diabetes No 0 Hx of Vascular Disease No 0 Total 0 Treatment Treatment ordered: NONE Other anticoagulant ordered: none Nicole Salazar MD Jul 27, 2020 09:09
[2020-07-27 10:46] LABS: HEMATOCRIT 45.4 % (42.0-52.0); MEAN CORPUSCULAR HEMOGLOBIN 29.5 pg (27.0-33.0); MEAN CORPUSCULAR VOLUME 89.2 fl (80.0-96.0); PLATELET COUNT, AUTOMATED 235 10^3/uL (150-450); RED BLOOD COUNT 5.09 10^6/uL (4.30-6.10); WHITE BLOOD COUNT 6.1 10^3/uL (4.0-10.0)
[2020-07-27 11:36] LABS: ALBUMIN 4.2 GM/DL (3.2-5.2); ALT/SGPT 70 U/L (12-78); BILIRUBIN,TOTAL 0.5 MG/DL (0.2-1.0); BLOOD UREA NITROGEN 8 MG/DL (7-18); CALCIUM LEVEL 9.4 MG/DL (8.5-10.1); CARBON DIOXIDE LEVEL 29 MEQ/L (21-32); CHLORIDE LEVEL 105 MEQ/L (98-107); CPK CREATINE PHOSPHOKINASE 10334 U/L (39-308); CREATININE FOR GFR 0.75 MG/DL (0.70-1.30); GLOMERULAR FILTRATION RATE > 60.0 (>60); GLUCOSE, FASTING 90 MG/DL (70-100); SODIUM LEVEL 140 MEQ/L (136-145); TOTAL PROTEIN 7.6 GM/DL (6.4-8.2)
--- NOTE | 2020-07-27 12:32 | MHHPEPDOC ---
General Date Of Admission: Jul 27, 2020 Legal Status: 9.39 Chief Complaint ", Sadness, suicidal thoughts, overdose of Benadryl and alcohol. History of Present Illness HISTORY OF THE PRESENT ILLNESS: Patient is a 20 -year-old , male, who overdosed on Benadryl and alcohol required a medical admission. 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 His surgical history is negative. His legal history is negative. His neurological history is negative. He has a high school diploma. His psychiatric history is negative. His psychiatric medications. History is negative. He states, however, in middle school, he sought some counseling due to attention problems. No history is negative. He has no children. He states, "I became nihilistic and overdosed on 100 Benadryl 25 mg and a half a bottle of whiskey. Patient states he wanted to . He felt stress. He had broken up with a girlfriend who he had met on the internet, and they have been seeing each o ther for 4 months. She stated she couldn't see him anymore. His last communication was hurt with her was 3 days ago. He did not feel her being sympathetic or empathetic. He would like to try the brown yazidism. He denies hallucinations, delusions, obsessions, compulsions and feels he is a burden to everybody. He is tearful and feels he is the work course of just keeps working from the [employer]. He sleeps well. His appetite is not as good. Psychiatric Review of Systems Depression (2 or more weeks): depressed mood, anhedonia, insomnia/hypersomnia, feelings of excess/guilt, feelings of worthlesness, decreased energy, difficulty concentrating, suicidal thoughts Amanda (4 or more days of): denies Psychosis: denies PTSD: denies Anxiety: denies Past Psychiatric History Previous Psychiatric Diagnosis: none Previous Psychiatric Admissions:. No admission. Suicide Attempts:. No previous suicide attempts. Psychiatric Follow-up:. No follow-up. Psychiatric medications: no psychiatric medications. Past Medical History Medical Problems None Head Injury: No Seizures: No Hospitalizations: No Surgeries: No Family Medical/Psychiatric HX Psychiatric Disorders: No Addiction: No Suicide Attemps/Completions: No Addiction History denies Social History Childhood: Not applicable. Abuse/Trauma: Not applicable. Current [place] Education: High school. Employment: [employer]. Social Support: No presence support. Legal:, Negative Marital:, Single. Mental Status Examination General Appearance: well groomed Build: average Demeanor: average Eye Contact: average Activity: average Behavior: cooperative Speech: clear Affect: flat Thought Process: logical/linear Thought Content (Delusions): none reported Thought Content (Other): none reported Thought Content (Aggressive): none reported Perception (Hallucinations): none reported Perception (Other): none reported Cognition (Impairment of): none reported Cognition(Intelligence Est.): average Oriented: Awake, Alert, Oriented times three Insight: poor Judgment: Poor Psychosis: Denies Diagnoses Suicide Attpt, Depression Situational A-FIB/CHADSVASC A-FIB History Current/History of A-Fib/PAF?: No Current PO Anticoag Therapy: No Age/Risk Factor Scoring CHADSVASC: CHADSVASC Response (Comments) Value Age Risk Factor Age < 65 years old 0 Gender Risk Factor Male 0 Hx of CHF No 0 Hx of HTN No 0 Hx of Stroke/TIA/or VTE No 0 Hx of Diabetes No 0 Hx of Vascular Disease No 0 Total 0 Treatment Treatment ordered: NONE Initial Treatment Plan 1. Patient was admitted on a [9.39] status. 2. Complete history was obtained. 3. With patients permission, family will be contacted and database will be expanded. 4. Patients medication regimen will be reviewed and changed accordingly. 5. Patient will be provided with protected environment. 6. Patient will be treated with individual, group, and milieu therapies. 7. Patient will receive supportive psych-education. 8. Discharge planning will commence immediately. 9. Outpatient follow-up treatment will be strongly recommended. 10. The initial treatment plan will focus initially on: * Depression. * Risk for suicide. ESTIMATED LENGTH OF STAY: - DAYS. TIME SPENT COUNSELING AND COORDINATING INITIAL CARE: minutes. N/A-No Antipsychotics Vital Signs Vital Signs Date Time Temp Pulse Resp B/P (MAP) Pulse Ox O2 Delivery O2 Flow Rate FiO2 07/27/20 07:30 97.7 64 20 122/70 (87) 97 Room Air Laboratory Data 24H Labs Laboratory Tests 2 07/27/20 10:15: Nucleated Red Blood Cells % (auto) 0.0, Anion Gap 6L, Glomerular Filtration Rate > 60.0, Calcium Level 9.4, Total Bilirubin 0.5, Aspartate Amino Transf (AST/SG OT) 286H, Alanine Aminotransferase (ALT/SGPT) 70, Alkaline Phosphatase 75, Total Creatine Kinase 10103W, Total Protein 7.6, Albumin 4.2, Albumin/Globulin Ratio 1.2 CBC/BMP Laboratory Tests 07/27/20 10:15 Medications No Active Prescriptions or Reported Meds Allergies Coded Allergies: No Known Drug Allergies (Verified Allergy, Unknown, 07/26/19) KEYLA VALDES MD Jul 27, 2020 12:32
[2020-07-27 19:05] VITALS: BP 141/68
[2020-07-28 06:00] VITALS: BP 142/63
[2020-07-28] MEDS: SERTRALINE HCL 50 MG TAB PO SCH (09:41)
--- NOTE | 2020-07-28 13:27 | MHIPNPDOC ---
[facility] Progress Note Progress Note DATE OF SERVICE: 07/28/20 HISTORY: Patient says the only treatment except his euthanasia. He states he does not want to achieve any further goals and states his mother told him that he drove her to drink. VITAL SIGNS: See below. NEW TEST RESULTS: None. CURRENT MEDICATIONS: See below. MENTAL STATUS EXAMINATION: Patient is a 20-year old male, who is focused on suicide. Speech: Is quiet with poverty of speech. Language skills are. No gross disturbance. Thought processes including: Focused on suicide. Thought content:. As above. Abstract reasoning, and computation:. Capable of abstract reasoning. Description of associations:. No loose associations. Description of abnormal or psychotic thoughts:. No psychotic thought. Judgment: Poor. Insight:, Poor. Orientation: 3. Recent and remote memory: Intact. Attention span and concentration: Intact. Language:. No disturbance. Fund of knowledge: Reasonable. Mood: Sad. Affect:, Down. DIAGNOSES: 1. Major depression. 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 3. None. ASSESSMENT: Patient cannot discharged as he continues to be a suicide threat MANAGEMENT PLAN:. Continue to try to convince patient to take treatment. TIME SPENT: 30 minutes. Vital Signs Vital Signs Date Time Temp Pulse Resp B/P (MAP) Pulse Ox O2 Delivery O2 Flow Rate FiO2 07/28/20 06:00 98.3 65 16 142/63 (89) 100 07/27/20 07:30 Room Air Current Medications Current Medications Medications (Trade) Dose Ordered Sig/Jade Route PRN Reason Start Time Stop Time Status Last Admin Dose Admin Acetaminophen (Tylenol Tab) 650 mg Q6HP PRN PO HEADACHE or DISCOMFORT 07/26/20 19:55 Al Hydrox/Mg Hydrox/Simethicone (Mylanta) 30 ml Q4HP PRN PO HEARTBURN/INDIGESTION 07/26/20 19:55 Home Med (Med Rec Complete!) ASDIRECTED XX 07/26/20 23:00 07/26/20 23:00 DC Magnesium Hydroxide (Milk Of Magnesia) 30 ml DAILYPRN PRN PO CONSTIPATION 07/26/20 19:55 Sertraline HCl (Zoloft) 50 mg DAILY PO 07/27/20 09:00 07/28/20 09:41 Trazodone HCl (Desyrel) 50 mg QHSP PRN PO INSOMNIA 07/26/20 19:55 Allergies Coded Allergies: No Known Drug Allergies (Verified Allergy, Unknown, 07/26/19) KEYLA VALDES MD Jul 28, 2020 13:27
[2020-07-28 17:58] VITALS: BP 140/65
[2020-07-29 06:59] VITALS: BP 144/72
[2020-07-29] MEDS: SERTRALINE HCL 50 MG TAB PO SCH (09:34)
[2020-07-29 11:51] LABS: HEMATOCRIT 48.3 % (42.0-52.0); HEMOGLOBIN 16.7 g/dl (13.5-17.5); MEAN CORPUSCULAR HGB CONC 34.6 g/dl (32.0-36.5); MEAN CORPUSCULAR VOLUME 86.9 fl (80.0-96.0); PLATELET COUNT, AUTOMATED 306 10^3/uL (150-450); RED BLOOD COUNT 5.56 10^6/uL (4.30-6.10); WHITE BLOOD COUNT 7.1 10^3/uL (4.0-10.0)
[2020-07-29 12:49] LABS: ALBUMIN 4.9 GM/DL (3.2-5.2); ALT/SGPT 63 U/L (12-78); BILIRUBIN,TOTAL 0.7 MG/DL (0.2-1.0); BLOOD UREA NITROGEN 11 MG/DL (7-18); CALCIUM LEVEL 10.2 MG/DL (8.5-10.1); CARBON DIOXIDE LEVEL 27 MEQ/L (21-32); CHLORIDE LEVEL 101 MEQ/L (98-107); CPK CREATINE PHOSPHOKINASE 1960 U/L (39-308); CREATININE FOR GFR 0.77 MG/DL (0.70-1.30); GLOMERULAR FILTRATION RATE > 60.0 (>60); GLUCOSE, FASTING 93 MG/DL (70-100); POTASSIUM SERUM 3.8 MEQ/L (3.5-5.1); SODIUM LEVEL 138 MEQ/L (136-145); TOTAL PROTEIN 8.3 GM/DL (6.4-8.2)
--- NOTE | 2020-07-29 15:56 | MHIPNPDOC ---
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 He was initially admitted for toxic encephalopathy from suicidal attempt with diphenhydramine and alcohol, acute kidney failure, and acute rhabdomyolysis. He states, "I became nihilistic and overdosed on 100 Benadryl 25 mg and a half a bottle of whiskey. Patient states he wanted to . He felt stress. He had broken up with a girlfriend who he had met on the internet, and they have been seeing each other for 4 months. She stated she couldn't see him anymore. His last communication was hurt with her was 3 days ago. He did not feel her being sympathetic or empathetic. on his 07/28/20 interview he says the only treatment except his euthanasia. He states he does not want to achieve any further goals and states his mother told him that he drove her to drink. VITAL SIGNS: See below. CURRENT MEDICATIONS: See below. 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 Intact Thought processes including: Linear, goal oriented, although questionable goals (wants to leave the [employer] and travel overseas and see the desert. Thought content: Denies depression, reports mild anxiety Abstract reasoning, and computation: Fair Capable of abstract reasoning. Description of associations:. No loose associations. Description of abnormal or psychotic thoughts:. No psychotic thought. Judgment: Fair to poor at times Insight: Fair to poor at times Orientation: 3. Recent and remote memory: Intact. Attention span and concentration: Intact. Language:. No disturbance. Fund of knowledge: Reasonable. Mood: Euthymic "My depression is much better" Affect: Constricted DIAGNOSES: 1. Major depression, single episode, moderate ASSESSMENT: Patient apologizes saying, "I should apologize because when I last spoke to someone I was nihilistic and very sarcastic. I am not suicidal, I really am not." Patient ruminates about his girlfriend who broke up with him. 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 When asked if he thinks he can change MOS, he states he does not think he will be able to do so. He appears to be rigid about staying in the [employer] and changing MOS. Feels that being med-boarded is the best thing. States that his reasons for living is that he will be able to do other things, see the dessert and see other countries. He appears to be minimizing his suicide attempt and oversimplifying the process of being med-boarded. MANAGEMENT PLAN: Patient is not stable for discharge,. Zoloft increased to 100 mg daily and Hydroxyzine 50 mg Q6H PRN for anxiety ordered TIME SPENT: 25 minutes. Vital Signs Vital Signs Date Time Temp Pulse Resp B/P (MAP) Pulse Ox O2 Delivery O2 Flow Rate FiO2 07/29/20 06:59 97.0 84 16 144/72 (96) 97 Room Air Laboratory Data 24H Labs Laboratory Tests 2 07/29/20 11:38: Nucleated Red Blood Cells % (auto) 0.0, Anion Gap 10, Glomerular Filtration Rate > 60.0, Calcium Level 10.2H, Total Bilirubin 0.7, Aspartate Amino Transf (AST/SGOT) 101H, Alanine Aminotransferase (ALT/SGPT) 63, Alkaline Phosphatase 81, Total Creatine Kinase 1960#H, Total Protein 8.3H, Albumin 4.9, Albumin/Globulin Ratio 1.4 CBC/BMP Laboratory Tests 07/29/20 11:38 Current Medications Current Medications Medications (Trade) Dose Ordered Sig/Jade Route PRN Reason Start Time Stop Time Status Last Admin Dose Admin Acetaminophen (Tylenol Tab) 650 mg Q6HP PRN PO HEADACHE or DISCOMFORT 07/26/20 19:55 Al Hydrox/Mg Hydrox/Simethicone (Mylanta) 30 ml Q4HP PRN PO HEARTBURN/INDIGESTION 07/26/20 19:55 07/29/20 10:18 Home Med (Med Rec Complete!) ASDIRECTED XX 07/26/20 23:00 07/26/20 23:00 DC Magnesium Hydroxide (Milk Of Magnesia) 30 ml DAILYPRN PRN PO CONSTIPATION 07/26/20 19:55 Sertraline HCl (Zoloft) 50 mg DAILY PO 07/27/20 09:00 07/29/20 09:34 Trazodone HCl (Desyrel) 50 mg QHSP PRN PO INSOMNIA 07/26/20 19:55 Allergies Coded Allergies: No Known Drug Allergies (Verified Allergy, Unknown, 07/26/19) MARY PEAN NP Jul 29, 2020 15:39
[2020-07-29 16:20] VITALS: BP 138/75
[2020-07-29] MEDS: hydrOXYzine 50 MG TAB PO PRN (20:35)
[2020-07-30 06:33] VITALS: BP 137/63
[2020-07-30] MEDS: SERTRALINE 100 MG TAB PO SCH (09:48)
[2020-07-30] MEDS: hydrOXYzine 50 MG TAB PO PRN (09:48)
[2020-07-30] MEDS ORDERED: hydrOXYzine 25 MG TAB PO PRN (10:10)
--- NOTE | 2020-07-30 14:03 | MHIPNPDOC ---
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 He was initially admitted for toxic encephalopathy from suicidal attempt with diphenhydramine and alcohol, acute kidney failure, and acute rhabdomyolysis. He states, "I became nihilistic and overdosed on 100 Benadryl 25 mg and a half a bottle of whiskey. Patient states he wanted to . He felt stress. He had broken up with a girlfriend who he had met on the internet, and they have been seeing each other for 4 months. She stated she couldn't see him anymore. His last communication was hurt with her was 3 days ago. He did not feel her being sympathetic or em pathetic. on his 07/28/20 interview he says the only treatment except his euthanasia. He states he does not want to achieve any further goals and states his mother told him that he drove her to drink. VITAL SIGNS: See below. CURRENT MEDICATIONS: See below. MENTAL STATUS EXAMINATION: Patient is a 20-year old male, who is focused on being med-boarded from the [employer] reporting that he has no motivation to continue working as a [employer] because of the stress and additional anxiety and frustration with the job Speech: Normal Rate, Tone and Volume Language skills are. Intact Thought processes including: Linear, goal oriented, although questionable goals (wants to leave the [employer] and travel overseas and see the desert. Thought content: Denies depression, reports mild anxiety Abstract reasoning, and computation: Fair Capable of abstract reasoning. Description of associations:. No loose associations. Description of abnormal or psychotic thoughts:. No psychotic thought. Judgment: Fair to poor at times Insight: Fair to poor at times Orientation: 3. Recent and remote memory: Intact. Attention span and concentration: Intact. Language:. No disturbance. Fund of knowledge: Reasonable. Mood:depressed Affect: Constricted DIAGNOSES: 1. Major depression, single episode, moderate ASSESSMENT: Patient found in his room, reports continued depression. States he feels unable to concentration, has poor focus. "I feel drained, tired and I ate breakfast but went back to bed. I don't know how I feel" Patient was unable to participate in individual session, returned to sleep MANAGEMENT PLAN: Patient is not stable for discharge,. Zoloft increased to 100 mg daily and decreased Hydroxyzine 25 mg Q6H PRN anxiety. No discharge today. TIME SPENT: 25 minutes. Vital Signs Vital Signs Date Time Temp Pulse Resp B/P (MAP) Pulse Ox O2 Delivery O2 Flow Rate FiO2 07/30/20 06:33 98.1 63 12 137/63 (87) 100 Room Air Current Medications Current Medications Medications (Trade) Dose Ordered Sig/Jade Route PRN Reason Start Time Stop Time Status Last Admin Dose Admin Acetaminophen (Tylenol Tab) 650 mg Q6HP PRN PO HEADACHE or DISCOMFORT 07/26/20 19:55 Al Hydrox/Mg Hydrox/Simethicone (Mylanta) 30 ml Q4HP PRN PO HEARTBURN/INDIGESTION 07/26/20 19:55 07/29/20 10:18 Home Med (Med Rec Complete!) ASDIRECTED XX 07/26/20 23:00 07/26/20 23:00 DC Hydroxyzine HCl (Atarax) 25 mg Q6HP PRN PO ANXIETY 07/30/20 10:10 Hydroxyzine HCl (Atarax) 50 mg Q6H PRN PO ANXIETY 07/29/20 15:25 07/30/20 10:07 DC 07/30/20 09:48 Magnesium Hydroxide (Milk Of Magnesia) 30 ml DAILYPRN PRN PO CONSTIPATION 07/26/20 19:55 Sertraline HCl (Zoloft) 50 mg DAILY PO 07/27/20 09:00 07/29/20 15:35 DC 07/29/20 09:34 Sertraline HCl (Zoloft) 100 mg QAM PO 07/30/20 09:00 07/30/20 09:48 Trazodone HCl (Desyrel) 50 mg QHSP PRN PO INSOMNIA 07/26/20 19:55 Allergies Coded Allergies: No Known Drug Allergies (Verified Allergy, Unknown, 07/26/19) MARY PENA NP Jul 30, 2020 14:03
[2020-07-30 16:43] VITALS: BP 134/67
[2020-07-31 06:28] VITALS: BP 149/79
[2020-07-31] MEDS: SERTRALINE 100 MG TAB PO SCH (08:45)
--- NOTE | 2020-07-31 11:17 | MHIPNPDOC ---
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 He was initially admitted for toxic encephalopathy from suicidal attempt with diphenhydramine and alcohol, acute kidney failure, and acute rhabdomyolysis. He states, "I became nihilistic and overdosed on 100 Benadryl 25 mg and a half a bottle of whiskey. Patient states he wanted to . He felt stress. He had broken up with a girlfriend who he had met on the internet, and they have been seeing each other for 4 months. She stated she couldn't see him anymore. His last communication was hurt with her was 3 days ago. He did not feel her being sympathetic or emp athetic. on his 07/28/20 interview he says the only treatment except his euthanasia. He states he does not want to achieve any further goals and states his mother told him that he drove her to drink. VITAL SIGNS: See below. CURRENT MEDICATIONS: See below. 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 Intact Thought processes including: Linear, goal oriented Thought content: reports depression, reports mild anxiety Abstract reasoning, and computation: Good Description of associations:. No loose associations. Description of abnormal or psychotic thoughts:. No psychotic thought. Judgment: Fair Insight: Fair Orientation: 3. Recent and remote memory: Intact. Attention span and concentration: Intact. Language:. No disturbance. Fund of knowledge: Reasonable. Mood:depressed Affect: Constricted DIAGNOSES: 1. Major depression, single episode, moderate ASSESSMENT: Patient continues to report moderate depression and anxiety. He is withdrawn and guarded. Reports that he does not have suicidal thoughts but he minimizes it's affect on him. He states that he isn't worried about but not actively trying to kill himself at this writing not is he planning. Patient reports self-esteem is low, doesn't feel worthy. Reviewed with patient Symptoms of Low Self-Esteem; Discussed the Family continuum of past traumas and feelings of being a burden to self, career, family and friends. Patient given DBT worksheets on Self-Esteem and Self-Talk Challenges and Forgiveness. MANAGEMENT PLAN: Continue medications as prescribed TIME SPENT: 25 minutes. Vital Signs Vital Signs Date Time Temp Pulse Resp B/P (MAP) Pulse Ox O2 Delivery O2 Flow Rate FiO2 07/31/20 06:28 98.2 63 18 149/79 (102) 97 Room Air Current Medications Current Medications Medications (Trade) Dose Ordered Sig/Jade Route PRN Reason Start Time Stop Time Status Last Admin Dose Admin Acetaminophen (Tylenol Tab) 650 mg Q6HP PRN PO HEADACHE or DISCOMFORT 07/26/20 19:55 Al Hydrox/Mg Hydrox/Simethicone (Mylanta) 30 ml Q4HP PRN PO HEARTBURN/INDIGESTION 07/26/20 19:55 07/29/20 10:18 Home Med (Med Rec Complete!) ASDIRECTED XX 07/26/20 23:00 07/26/20 23:00 DC Hydroxyzine HCl (Atarax) 25 mg Q6HP PRN PO ANXIETY 07/30/20 10:10 Hydroxyzine HCl (Atarax) 50 mg Q6H PRN PO ANXIETY 07/29/20 15:25 07/30/20 10:07 DC 07/30/20 09:48 Magnesium Hydroxide (Milk Of Magnesia) 30 ml DAILYPRN PRN PO CONSTIPATION 07/26/20 19:55 Sertraline HCl (Zoloft) 50 mg DAILY PO 07/27/20 09:00 07/29/20 15:35 DC 07/29/20 09:34 Sertraline HCl (Zoloft) 100 mg QAM PO 07/30/20 09:00 07/31/20 08:45 Trazodone HCl (Desyrel) 50 mg QHSP PRN PO INSOMNIA 07/26/20 19:55 Allergies Coded Allergies: No Known Drug Allergies (Verified Allergy, Unknown, 07/26/19) MARY PENA NP Jul 31, 2020 11:17
[2020-07-31 16:35] VITALS: BP 131/86
[2020-08-01 06:12] VITALS: BP 126/57
[2020-08-01] MEDS: SERTRALINE 100 MG TAB PO SCH (08:28)
[2020-08-01] MEDS ORDERED: ZOLO100T PO (10:13)
[2020-08-01] MEDS ORDERED: HYDR-3363 PO (10:13)
--- NOTE | 2020-08-01 13:50 | MHIPNPDOC ---
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 He was initially admitted for toxic encephalopathy from suicidal attempt with diphenhydramine and alcohol, acute kidney failure, and acute rhabdomyolysis. He states, "I became nihilistic and overdosed on 100 Benadryl 25 mg and a half a bottle of whiskey. Patient states he wanted to . He felt stress. He had broken up with a girlfriend who he had met on the internet, and they have been seeing each other for 4 months. She stated she couldn't see him anymore. His last communication was hurt with her was 3 days ago. He did not feel her being sympathetic or emp athetic. on his 07/28/20 interview he says the only treatment except his euthanasia. He states he does not want to achieve any further goals and states his mother told him that he drove her to drink. VITAL SIGNS: See below. CURRENT MEDICATIONS: See below. 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 Intact Thought processes including: Linear, goal oriented Thought content: reports depression, reports mild anxiety Abstract reasoning, and computation: Good Description of associations:. No loose associations. Description of abnormal or psychotic thoughts:. No psychotic thought. Judgment: Fair Insight: Fair Orientation: 3. Recent and remote memory: Intact. Attention span and concentration: Intact. Language:. No disturbance. Fund of knowledge: Reasonable. Mood:depressed Affect: Constricted DIAGNOSES: 1. Major depression, single episode, moderate ASSESSMENT: Patient continues to improvement in depression and anxiety symptoms. He had a brighter mood and affect in the individual session. He denies suicidal thoughts but he minimizes it's affect on him. In today's session, he reported that he was happy he was alive, felt that there was a reason for it. For the past few days patient appeared to minimize his suicide attempt and was very dismissive about it.Reviewed the Family continuum of past traumas and feelings of being a burden to self, career, family and friends. Reviewed DBT worksheets on Self-Esteem and Self-Talk Challenges and Forgiveness, stated that this was very educational MANAGEMENT PLAN: Continue medications as prescribed. Discharge tomorrow TIME SPENT: 25 minutes. Vital Signs Vital Signs Date Time Temp Pulse Resp B/P (MAP) Pulse Ox O2 Delivery O2 Flow Rate FiO2 08/01/20 06:12 98.6 90 18 126/57 (80) 97 Room Air Current Medications Current Medications Medications (Trade) Dose Ordered Sig/Jade Route PRN Reason Start Time Stop Time Status Last Admin Dose Admin Acetaminophen (Tylenol Tab) 650 mg Q6HP PRN PO HEADACHE or DISCOMFORT 07/26/20 19:55 Al Hydrox/Mg Hydrox/Simethicone (Mylanta) 30 ml Q4HP PRN PO HEARTBURN/INDIGESTION 07/26/20 19:55 07/29/20 10:18 Home Med (Med Rec Complete!) ASDIRECTED XX 07/26/20 23:00 07/26/20 23:00 DC Hydroxyzine HCl (Atarax) 25 mg Q6HP PRN PO ANXIETY 07/30/20 10:10 Hydroxyzine HCl (Atarax) 50 mg Q6H PRN PO ANXIETY 07/29/20 15:25 07/30/20 10:07 DC 07/30/20 09:48 Magnesium Hydroxide (Milk Of Magnesia) 30 ml DAILYPRN PRN PO CONSTIPATION 07/26/20 19:55 Sertraline HCl (Zoloft) 50 mg DAILY PO 07/27/20 09:00 07/29/20 15:35 DC 07/29/20 09:34 Sertraline HCl (Zoloft) 100 mg QAM PO 07/30/20 09:00 08/01/20 08:28 Trazodone HCl (Desyrel) 50 mg QHSP PRN PO INSOMNIA 07/26/20 19:55 Allergies Coded Allergies: No Known Drug Allergies (Verified Allergy, Unknown, 07/26/19) MARY PENA NP Aug 01, 2020 13:50
[2020-08-01 18:44] VITALS: BP 143/77
[2020-08-02 06:00] VITALS: BP 111/65
[2020-08-02] MEDS: SERTRALINE 100 MG TAB PO SCH (08:37)
--- NOTE | 2020-08-02 10:27 | MHDSPDOC ---
[facility] Discharge Summary Discharge Summary DATE OF ADMISSION: Jul 26, 2020 at 18:23 DATE OF DISCHARGE: August 02 1010 DISCHARGE DIAGNOSES: 1. 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 He was initially admitted to medical for toxic encephalopathy from suicidal attempt with diphenhydramine and alcohol, acute kidney failure, and acute rhabdomyolysis. He states, "I became nihilistic and overdosed on 100 Benadryl 25 mg and a half a bottle of whiskey. Patient states he wanted to . He felt stress. He had broken up with a girlfriend who he had met on the internet, and they have been seeing each other for 4 months. She stated she couldn't see him anymore. His last communication was hurt with her was 3 days ago. He did not feel her being sympathetic or empathetic. on his 07/28/20 interview he says the only treatment except his euthanasia. He states he does not want to achieve any further goals and states his mother told him that he drove her to drink. CONSULTANTS INVOLVED: See Medical H + P by Hospitalist TREATMENT AND PROGRESS ON THE UNIT: Patient was admitted to the [facility] on a 9.39 legal status he was afforded the following treatment modalities: 1) Individual Therapy 2) Group Therapy 3) Medication Management 4) Milieu Therapy 5) Safe Environment HOSPITAL COURSE: Patient is admitted to [facility] on a 9.39 status post a suicide attempt of overdose of 100 tablets of Benadryl 25 mg and ETOH. 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 For several days of the admission the patient was standoffish, withdrawn and disengaged. He was superficial many times, and made bizarre statements that continued with suicidal thinking. Patient reports today no suicidal thinking. But continues to make strange comments "I know I will be on suicide watch, but i hope I can get a tattoo." Patient had avoided the subject of his serious arora icide attempt. He was detached and blase` about the seriousness of this suicide attempt. Yesterday he did finally say that he is happy that he is alive, though it did appear to still be a superficial statement. Patient has not voiced continued thoughts of suicide, but still remain unemotional about it. He reports decreased depression and anxiety and had planned for his discharge today. Patient was compliant with treatment modalities, visible on the unit, social with peers and attended groups towards the middle and end of the hospitalization. Treatment team feels that patient has met criteria for discharge. DISCHARGE ASSESSMENT: In today's interview, patient is alert and oriented, pts dress is appropriate. Hygiene and grooming is well-kempt. Smiles on approach and is pleasant and engaged in the interview. Denies depression and anxiety. Denies suicidal and homicidal ideation, planning or intent. Denies and is not observed with tim, psychotic symptoms of delusions, bizarre thinking, obsessions, paranoia, ruminations illogical thoughts, flight of ideas or having poor insight and judgement. Patient has normal mentation, declines further hospitalization on a voluntary status and meets criteria for discharge today. Patient encouraged to return to hospital if his symptoms worsen or change and encouraged to call unit if he/she/they needs to speak to provider for questions regarding medications or care. 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 Denies suicidal/homicidal ideation, planning or intent. Abstract reasoning, and computation: fair Description of associations: denies, none observed Description of abnormal or psychotic thoughts: denies, none observed. Judgment: fair Insight: fair Orientation: alert and oriented to person, place, time and situation Recent and remote memory: intact Attention span and concentration: good Language: expansive Fund of knowledge: average Mood: Euthymic Mood Affect: reactive MEDICATIONS ON DISCHARGE: See Medication Reconciliation PLAN/FOLLOWUP ARRANGEMENTS: [facility] The amount of time spent in the coordination of care for this patient was approximately 25 minutes. ETOH/Disorder Med Rx ETOH/DRUG DISORDER RX: N/A Vital Signs/I&Os Vital Signs Date Time Temp Pulse Resp B/P (MAP) Pulse Ox O2 Delivery O2 Flow Rate FiO2 08/02/20 06:00 97.9 71 20 111/65 (80) 96 08/01/20 06:12 Room Air Medications Scheduled Sertraline Hcl (Zoloft) 100 Mg Tablet, 100 MG PO QAM for Depression, #7 Scheduled PRN Hydroxyzine HCl (Hydroxyzine HCl) 25 Mg Tablet, 25 MG PO BIDP PRN for ANXIETY, #14 Allergies Coded Allergies: No Known Drug Allergies (Verified Allergy, Unknown, 07/26/19) MARY PENA NP Aug 02, 2020 10:27
== END 2020-08-02 10:05 | disposition home or self-care (01) | DRG 885 ==
LOC: M ED INP 18:23 → M PSY 22:00
PROVIDERS: ADMIT Psychiatry & Neurology Psychiatry; ATTEND Psychiatry & Neurology Psychiatry
DX: F32.1 Major depressive disorder, single episode, moderate (principal); M62.82 Rhabdomyolysis; E86.0 Dehydration

== ENCOUNTER 2021-01-09 16:06 | Emergency (ER) | payer OTHER ==
[~2021-01-09] VITALS: Ht 180.3 cm; Wt 100.0 kg
[~2021-01-09 16:06] MED LIST changes: -ACET-838 PO; +ACET32TAB PO; +HYDR-3363 PO; +ZOLO100T PO
[2021-01-09 16:40] LABS: HEMATOCRIT 45.3 % (42.0-52.0); HEMOGLOBIN 14.8 g/dl (13.5-17.5); MEAN CORPUSCULAR HGB CONC 32.7 g/dl (32.0-36.5); MEAN CORPUSCULAR VOLUME 91.9 fl (80.0-96.0); PLATELET COUNT, AUTOMATED 276 10^3/uL (150-450); RED BLOOD COUNT 4.93 10^6/uL (4.30-6.10); WHITE BLOOD COUNT 5.9 10^3/uL (4.0-10.0)
[2021-01-09 17:11] LABS: BLOOD UREA NITROGEN 14 MG/DL (7-18); CARBON DIOXIDE LEVEL 27 MEQ/L (21-32); CHLORIDE LEVEL 108 MEQ/L (98-107); CREATININE FOR GFR 0.88 MG/DL (0.70-1.30); GLOMERULAR FILTRATION RATE > 60.0 (>60); GLUCOSE, FASTING 96 MG/DL (70-100); POTASSIUM SERUM 4.3 MEQ/L (3.5-5.1); SODIUM LEVEL 139 MEQ/L (136-145)
[2021-01-09 17:12] LABS: ACETAMINOPHEN LEVEL < 2.0 UG/ML (10.0-30.0); ALBUMIN 4.1 GM/DL (3.2-5.2); ALT/SGPT 27 U/L (12-78); BILIRUBIN,DIRECT < 0.1 MG/DL (0.0-0.2); BILIRUBIN,TOTAL 0.5 MG/DL (0.2-1.0); CALCIUM LEVEL 9.3 MG/DL (8.5-10.1); ETHYL ALCOHOL (ETHANOL) < 0.003 % (0.000-0.010); SALICYLATE LEVEL < 1.7 MG/DL (5.0-30.0); THYROID STIMULATING HORMONE 0.925 uIU/ML (0.358-3.740); TOTAL PROTEIN 7.6 GM/DL (6.4-8.2)
[2021-01-09 17:36] LABS: AMPHETAMINES LEVEL URINE NEGATIVE (NEGATIVE); BARBITURATES URINE NEGATIVE (NEGATIVE); BENZODIAZEPINES URINE NEGATIVE (NEGATIVE); CANNABINOIDS URINE NEGATIVE (NEGATIVE); COCAINE METABOLITE URINE NEGATIVE (NEGATIVE); METHADONE URINE NEGATIVE (NEGATIVE); OPIATES URINE NEGATIVE (NEGATIVE); PHENCYCLIDINE URINE NEGATIVE (NEGATIVE)
[2021-01-09] MEDS ORDERED: ACET-683 PO (20:14)
[2021-01-09] MEDS ORDERED: IBUP80TA PO (20:14)
[2021-01-09] MEDS ORDERED: HOME MED LIST COMPLETE! XX SCH (20:15)
[2021-01-10 09:19] LABS: RSV AMPLIFICATION NEGATIVE (NEGATIVE)
[2021-01-11 09:10] VITALS: BP 129/69
== END 2021-01-11 09:14 ==
LOC: M ED 16:06
DX: R45.851 Suicidal ideations (principal); F33.9 Major depressive disorder, recurrent, unspecified; Z91.5 Personal history of self-harm

== ENCOUNTER → 2021-02-10 | Outpatient (REF) | payer OTHER ==
[~2021-02-10] MED LIST changes: +IBUP80TA PO
--- NOTE | 2021-02-10 11:19 | REP ---
INDICATION: SOB. COMPARISON: None. FINDINGS: The superior mediastinal structures are midline. The cardiac silhouette is unremarkable in size, shape, and position. The diaphragmatic surfaces of the lungs are regular, and the costophrenic angles are clear. The pulmonary cardozo are clear. The imaged osseous structures are intact. IMPRESSION: There is no acute cardiopulmonary disease. <Electronically signed by Manoj Styles > 02/10/21 [id number]
== END ==
LOC: M PLAIMG 10:43 → EDSTATUS 02-14 07:24
PROVIDERS: ATTEND Internal Medicine
DX: R06.02 Shortness of breath (principal)

== ENCOUNTER 2021-07-03 09:04 | Day surgery (SDC) | payer OTHER ==
[~2021-07-03] VITALS: Ht 180.3 cm; Wt 98.0 kg
[~2021-07-03 09:04] MED LIST changes: +ATOM40CA16 PO; +LR 1,000 ML IV ONE; +TOPI50TA9 PO
[2021-07-03] MEDS ORDERED: ONDANSETRON 4MG/2ML VIAL As Ordered ONE (10:00)
[2021-07-03] MEDS ORDERED: dexameTHASONE 4 MG/ML 1ML VIAL (J1100 PER 1MG) As Ordered ONE (10:00)
[2021-07-03] MEDS ORDERED: propofoL 200 MG/20 ML VIAL As Ordered ONE (10:00)
[2021-07-03] MEDS ORDERED: ROCURONIUM BROMIDE 50 MG/5 ML VIAL As Ordered ONE (10:00)
[2021-07-03] MEDS ORDERED: LIDOCAINE 2% 100MG/5ML SDV (FOR ANES.) As Ordered ONE (10:00)
[2021-07-03] MEDS ORDERED: ACETAMINOPHEN 1000MG 100ML IV BTL (OFIRMEV) (J0131 PER 10MG) As Ordered ONE (10:00)
[2021-07-03] MEDS ORDERED: SUGAMMADEX SODIUM 500 MG/5 ML VIAL (BRIDION) As Ordered ONE (10:00)
[2021-07-03] MEDS ORDERED: MIDAZOLAM INJ 2MG/2ML VIAL (J2250 PER 1MG) As Ordered ONE (10:01)
[2021-07-03] MEDS ORDERED: fentaNYL 100 MCG/2 ML INJECTION As Ordered ONE ×2 (10:01→11:18)
[2021-07-03] MEDS ORDERED: BUPIVACAINE HCL 0.5% 30 ML VIAL As Ordered ONE (10:29)
[2021-07-03] MEDS ORDERED: OXYMETAZOLINE 0.05% NASAL SPRAY (AFRIN) As Ordered ONE (10:29)
[2021-07-03] MEDS ORDERED: METHYLENE BLUE 0.5% (5MG/ML) 10 ML AMP (PROVAYBLUE) As Ordered ONE (11:13)
[2021-07-03] MEDS ORDERED: EPINEPHrine 1MG/ML INJ 30ML MD-VIAL As Ordered ONE (11:13)
[2021-07-03] MEDS ORDERED: LR 1,000 ML IV SCH ×2 (12:40)
[2021-07-03] MEDS ORDERED: ONDANSETRON 4MG/2ML VIAL IV PRN ×2 (12:40)
[2021-07-03] MEDS ORDERED: HYDROcodone/APAP LIQUID 7.5-325MG 15ML UDC (LORTAB ELIXIR) PO PRN (12:40)
[2021-07-03] MEDS: fentaNYL 100 MCG/2 ML INJECTION IV PRN ×4 (12:44→13:05)
[2021-07-03 14:20] VITALS: BP 142/79
== END 2021-07-03 14:30 | disposition home or self-care (01) ==
LOC: M SDC 09:04
PROVIDERS: ATTEND Otolaryngology
DX: J35.01 Chronic tonsillitis (principal); J35.8 Other chronic diseases of tonsils and adenoids; F41.9 Anxiety disorder, unspecified; M54.9 Dorsalgia, unspecified; F90.9 Attention-deficit hyperactivity disorder, unspecified type; F32.9 Major depressive disorder, single episode, unspecified; N17.9 Acute kidney failure, unspecified; F17.290 Nicotine dependence, other tobacco product, uncomplicated; Z79.899 Other long term (current) drug therapy
CPT/HCPCS: 42826; 88302; J0131; J1100; J2250; J2405; J3010; Q9968